=== PATIENT | female | born 1945 | race Caucasian/White ===

== ENCOUNTER 2017-02-01 23:11 | Observation (INO) | payer OTHER, MEDICARE ==
[~2017-02-01] VITALS: Ht 152.4 cm; Wt 56.7 kg
[~2017-02-01 23:11] MED LIST: ALBUTEROL 3 ML3 ML INH; FLUCONAZOLE150 MG PO; GUAIFENESIN600 MG PO; NOVOLOG100 U/ML SC; PREDNISONE10 MG PO; PREDNISONE5 MG PO; Robitussin PO; SPIRIVA1 PUF INH
--- NOTE | 2017-02-01 23:38 | ED GENERAL ADULT ---
See Addendum History of Present Illness General Chief Complaint: General Adult Stated Complaint: " FEVER,@HOME 101.4,CONGESTION,COUGH,SPO2 92%" Source: patient, family Exam Limitations: no limitations Vital Signs & Intake/Output Vital Signs & Intake/Output Vital Signs Date Time Temp Pulse Resp B/P B/P Pulse O2 O2 Flow FiO2 Mean Ox Delivery Rate 02/02 0010 Room Air 02/01 2319 98.6 86 20 132/73 92 Room Air ED Intake and Output 02/02 0000 02/01 1200 Intake Total 0 Output Total Balance 0 Intake, Oral 0 Patient 125 lb Weight Weight Reported by Patient Measurement Method Allergies Coded Allergies: No Known Allergies (12/26/15) Triage Note: PT TO ED C/O COUGH, SNEEZING, CONGESTION AND FEVER AT HOME 101.4. 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 O2 SAT 92% ON RA PMH OF PNA Triage Nurses Notes Reviewed? yes Onset: Gradual Duration: day(s): (6) Timing: remote history Injury Environment: home Severity: moderate Severity Numbers: 7 No Modifying Factors: none Associated Symptoms: cough HPI: Patient is a 71-year-old female with no past medical history, non-any daily medication presenting to the emergency department chief complaint of dry cough, malaise, low oxygen. Symptoms initially started about 6 days ago progressively getting worse today. Denies taking anything [id number] help with symptoms. History of similar symptoms in the past with pneumonia. Denies any sputum production. Fevers up to 101 today at home. The last time she developed pneumonia is very rapid so she wanted to come in for evaluation make sure it doesn't get worse. No nausea or vomiting. Denies abdominal pain. She does report nasal congestion. (ALAN DALLAS,GALEN) Reconcile Medications No Known Home Medications (CAILIN BOBO,JOSE MARIA Bingham) Past History Travel History Traveled to [place] past 21 day No Medical History Any Pertinent Medical History? 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 No (GALEN CASTRO) Review of Systems Review of Systems Constitutional: Reports: fever, malaise. Comments Review of systems: See HPI, All other systems negative. Constitutional, no chills or weight loss HEENT: No visual changes no sore throat Cardiovascular: No chest pain ,palpitation , orthopnea or ankle swelling Skin, no jaundice no rashes Respiratory: No dyspnea cough sputum or hemoptysis GI: No nausea no vomiting : No dysuria No hematuria Muscle skeletal: no back pain, no neck pain, Neurologic: No numbness no confusion, no headaches Psych: No stress anxiety or depression,. Heme/endocrine: No bruising no bleeding no polyuria or polydipsia Immunology: No splenectomy or history of AIDS (GALEN CASTRO) Physical Exam Physical Exam General Appearance: well developed/nourished, no apparent distress, alert, awake , comfortable Comments: Well-developed well-nourished person in no acute distress HEENT: Normal EENT exam, extraocular motion intact, no nystagmus. Pupils equally round and reactive to light and accommodation. Nose is atraumatic. External auditory canal and Tympanic membranes clear. Pharynx normal. No swelling or edema. Neck: Supple, no lymphadenopathy, normal range of motion without pain or tenderness Back: Nontender Cardiovascular: Regular rate and rhythms no murmurs rubs or gallops, normal JVP Respiratory: Chest nontender. No respiratory distress.breath sounds diminished to auscultation bilaterally Extremity: No edema, no calf tenderness to palpation, normal and equal pulses. Neuro: Alert oriented x3 Skin: No appreciable rash on exposed skin, skin is warm and dry. Psych: Mood and affect is normal, memory and judgment is normal. Core Measures ACS in differential dx? No CVA/TIA Diagnosis: No Severe Sepsis Present: No Septic Shock Present: No (GALEN CASTRO) Progress Differential Diagnoses I considered the following diagnoses in my evaluation of the patient: Pneumonia , bronchitis, viral syndrome, influenza, COPD exacerbation Plan of Care: Orders Procedure Date/time Status BLOOD CULTURE 02/01 2325 Active BLOOD CULTURE 02/01 2323 Active TROPONIN LEVEL 02/01 2323 Complete COMPREHENSIVE METABOLIC PANEL 02/01 2323 Complete CBC WITHOUT DIFFERENTIAL 02/01 2323 Complete EKG 02/01 2323 Active Laboratory Tests 02/01/172350: Anion Gap 13, Estimated GFR > 60, BUN/Creatinine Ratio 21.4, Glucose 153 H, Calcium 9.4, Total Bilirubin 0.7, AST 26, ALT 48, Alkaline Phosphatase 78, Troponin I < 0.01, Total Protein 6.8, Albumin 3.9, Globulin 2.9, Albumin/ Globulin Ratio 1.3, CBC w Diff NO MAN DIFF REQ, RBC 4.45, MCV 87.9, MCH 30.1, RDW 13.1, MPV 8.2, Gran % 65.6, Lymphocytes % 25.4, Monocytes % 6.3, Eosinophils % 1.3, Basophils % 1.4, Absolute Granulocytes 8.9 H, Absolute Lymphocytes 3.4, Absolute Monocytes 0.9 H, Absolute Eosinophils 0.2, Absolute Basophils 0.2, PUBS MCHC 34.2 Microbiology 02/01 2358 BLOOD: Blood Culture - RECD 02/01 2351 BLOOD: Blood Culture - RECD Diagnostic Imaging: Viewed by Me: Radiology Read. Discussed w/RAD: Radiology Read. Initial ED EKG: NSR (78) Hand-Off Endorsed To: CAILIN BOBO,JOSE MARIA Bingham Endorsed Time: 99 Pending: Xray (GALEN CASTRO) CXR Impression: no acute abnormality, no infiltrates, normal size heart, normal mediastinum Comments: PATIENT: AUGIE LATIF PRESENT AGE: 71 PATIENT ACCOUNT NO: [id number] : 45 LOCATION: [facility] ORDERING PHYSICIAN: JOSE MARIA SIMEON MD SERVICE DATE: 02/01/17 EXAM TYPE: RAD - XRY-CHEST XRAY, PA AND LATERAL EXAMINATION: XR CHEST CLINICAL INFORMATION: Hypoxia COMPARISON: CT from 04/16/2016 TECHNIQUE: 2 views of the chest were obtained. FINDINGS: The lungs are well expanded. There is no focal consolidation, edema, or effusion. No pneumothorax. The cardiomediastinal silhouette is within normal limits. No acute osseous abnormality. Mild degenerative changes in the spine. IMPRESSION: Clear lungs. DICTATED BY: JANI BOBO,ARPIT DATE/TIME DICTATED:02/02/1757 HOUSE WIRER:FANNY DATE/TIME TRANSCRIBED:02/02/1757 CONFIDENTIAL, DO NOT COPY WITHOUT APPROPRIATE AUTHORIZATION. <Electronically signed in Other Vendor System> SIGNED BY: JANI BOBO,ARPIT 02/02 010 (CAILIN BOBO,JOSE MARIA Bingham) Departure Departure Disposition: STILL A PATIENT Condition: Stable Referrals: WHITNEY LEIVA,AMBREEN Cavazos (PCP/Family) Departure Forms: Customer Survey General Discharge Information (GALEN CASTRO) Departure Clinical Impression Primary Impression: Hypoxia Secondary Impressions: COPD exacerbation Prescriptions: Current Visit Scripts No Known Home Medications Admission Note Spoke With: YVAN ROMANO MD Documentation of Exam: Documentation of any treatments & extenuating circumstances including Concerns Regarding Discharge (functional status, medication knowledge or non-compliance, living conditions, etc.) that warrant an admission rather than observation: pt hypoxic to 86% on room air, wheezing, rhonchi, diminished breath sounds on exam... most consistent with copd... Pt merits steroids, abx, 02 support, nebs rtc. PA/BRAND MARKETING COORDINATOR Co-Sign Statement Statement: ED Attending supervision documentation- [x] I saw and evaluated the patient. I have also reviewed all the pertinent lab results and diagnostic results. I agree with the findings and the plan of care as documented in the PA's/BRAND MARKETING COORDINATOR's documentation. pt hypoxic to 86% on room air... wheezing/rhonchi on exam... pt to be admitted for abx, 02 support. [] I have reviewed the ED Record and agree with the PA's/BRAND MARKETING COORDINATOR's documentation. [] Additions or exceptions (if any) to the PAs/BRAND MARKETING COORDINATOR's note and plan are summarized below: [] (CAILIN BOBO,JOSE MARIA Bingham) Critical Care Note Critical Care Note Critical Care Time: non-applicable (GALEN CASTRO)
[2017-02-02 00:13] LABS: ABSOLUTE BASOPHIL COUNT 0.2 /CUMM (0.0-0.2); ABSOLUTE EOSINOPHIL COUNT 0.2 /CUMM (0.0-0.7); ABSOLUTE GRANULOCYTE CT 8.9 /CUMM (1.4-6.5); ABSOLUTE LYMPH COUNT 3.4 /CUMM (1.2-3.4); ABSOLUTE MONOCYTE COUNT 0.9 /CUMM (0.10-0.60); BASOPHIL % 1.4 % (0.0-2.0); EOSINOPHIL % 1.3 % (0-5); GRANULOCYTE % 65.6 % (42.2-75.2); HEMATOCRIT 39.1 % (37-47); MEAN CORPUSCULAR HGB 30.1 PG (27.0-31.0); MEAN CORPUSCULAR HGB CONC 34.2 G/DL (33.0-37.0); MEAN CORPUSCULAR VOLUME 87.9 FL (81.0-99.0); MEAN PLATELET VOLUME 8.2 FL (7.4-10.4); PLATELET COUNT 261 /CUMM (130-400); RBC DISTRIBUTION WIDTH 13.1 % (11.5-14.5); RED BLOOD CELL CT 4.45 /CUMM (4.20-5.40); WHITE BLOOD CELL COUNT 13.6 /CUMM (4.8-10.8)
--- NOTE | 2017-02-02 01:02 | RADIOLOGY REPORT ---
EXAMINATION: XR CHEST CLINICAL INFORMATION: Hypoxia COMPARISON: CT from 04/16/2016 TECHNIQUE: 2 views of the chest were obtained. FINDINGS: The lungs are well expanded. There is no focal consolidation, edema, or effusion. No pneumothorax. The cardiomediastinal silhouette is within normal limits. No acute osseous abnormality. Mild degenerative changes in the spine. IMPRESSION: Clear lungs.
--- NOTE | 2017-02-02 03:08 | History & Physical ---
DANNY SU MD 02/02/17 0307: General Information and HPI MD Statement: I have seen and personally examined AUGIE BRENNAN and documented this H&P. The patient is a 71 year old F who presented with a patient stated chief complaint of cough, congestion and fever. Source of Information: patient, family, old records Exam Limitations: no limitations History of Present Illness: Ms. Brennan is a 71 year old female with PMH of three prior episodes of pneumonia who presents to the [place] ED with chief complaint of cough, congestion and fever to 101.4. According to the patient and daughter who is present in the room at time of the interview, Ms. Brennan started feeling run down and was experiencing cough and congestion beginning on Friday 01/26 and Saturday 01/27. She subsequently felt better on Saturday and was able to go to work due to less lethargy. However, she again experienced malaise, cough and congestion on Saturday which has progressed slowly throughout the week to include fever up to 101.4 and mild, clear sputum production. Patient endorses feeling similar to when she previously had pneumonia, prompting her to check her oxygen saturation at home which was found to be 88% on room air at rest. Of note, there is history of several sick contacts at work this week. Patient currently denies chills, dizziness, shortness of breath, heart burn, choking on food, aspiration, chest pain, palpitations, abdominal pain, nausea, vomiting, diarrhea or difficulty performing her ADLs. Past surgical history is negative for prior procedures. Social history is significant for prior tobacco use with patient quitting greater than one year ago. She follows with Dr. Ivan MD due to the several episodes of pneumonia she has had in the past, though the patient denies ever being diagnoses with COPD or other lung pathology. 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 Home Who Do You Live With? daughter. Services at Home: None Primary Language: Prydeinig Smoking Status: Former Smoker ETOH Use: denies use Illicit Drug Use: denies illicit drug use Living Will? yes Functional Ability ADLs Independent: dressing, eating, toileting, bathing. Ambulation: independent IADLs Independent: shopping, housework, finances, food prep, telephone, transportation , medication admin. Employment History Employment Employed Review of Systems Review of Systems Constitutional: Reports: fever, malaise. Denies: chills, unexplained weight loss. EENTM: Reports: nasal congestion, throat pain. Denies: blurred vision, visual changes. Cardiovascular: Denies: chest pain, palpitations, peripheral edema. Respiratory: Reports: cough, sputum production. Denies: short of breath, wheezing. GI: Denies: abdominal pain, nausea, vomiting. Genitourinary: Denies: dysuria, hematuria. Musculoskeletal: Denies: back pain, joint pain. Skin: Denies: lesions. Neurological/Psychological: Denies: confusion, headache, numbness, paresthesia. Hematologic/Endocrine: Denies: bruising, bleeding. Immunologic/Allergic: Denies: splenectomy. All Other Systems: Reviewed and Negative Exam & Diagnostic Data Last 24 Hrs of Vital Signs/I&O Vital Signs Date Time Temp Pulse Resp B/P B/P Pulse O2 O2 Flow FiO2 Mean Ox Delivery Rate 02/02 0208 98.7 86 20 144/64 91 Nasal 2.0L Cannula 02/02 0010 Room Air 02/01 2319 98.6 86 20 132/73 92 Room Air Intake & Output 02/02 0800 02/02 0000 02/01 1600 Intake Total 0 Output Total Balance 0 Intake, Oral 0 Patient 125 lb Weight Weight Reported by Patient Measurement Method Physical Exam General Appearance Alert, Oriented X3, Cooperative, No Acute Distress Skin No Rashes, No Significant Lesion Skin Temp/Moisture Exam: Warm/Dry HEENT Atraumatic, PERRLA, EOMI, Mucous Membr. moist/pink, Mild erythema of posterior pharynx Neck Supple, +2 Carotid Pulse wo Bruit Lymphatic Cervical nl Cardiovascular Regular Rate, Normal S1, Normal S2, No Murmurs Lungs Normal Air Movement, Occasional rhonchi at the bilateral bases, otherwise clear lungs. Abdomen Normal Bowel Sounds, Soft, No Tenderness Neurological Normal Speech, Normal Tone Extremities No Clubbing, No Cyanosis, No Edema Vascular Pulses Symmetrical Last 24 Hrs of Labs/Khanh: Laboratory Tests 02/01/172350: Anion Gap 13, Estimated GFR > 60, BUN/Creatinine Ratio 21.4, Glucose 153 H, Calcium 9.4, Total Bilirubin 0.7, AST 26, ALT 48, Alkaline Phosphatase 78, Troponin I < 0.01, Total Protein 6.8, Albumin 3.9, Globulin 2.9, Albumin/ Globulin Ratio 1.3, CBC w Diff NO MAN DIFF REQ, RBC 4.45, MCV 87.9, MCH 30.1, RDW 13.1, MPV 8.2, Gran % 65.6, Lymphocytes % 25.4, Monocytes % 6.3, Eosinophils % 1.3, Basophils % 1.4, Absolute Granulocytes 8.9 H, Absolute Lymphocytes 3.4, Absolute Monocytes 0.9 H, Absolute Eosinophils 0.2, Absolute Basophils 0.2, PUBS MCHC 34.2 Microbiology 02/02 314 LOWER RESP: Respiratory Culture - ORD 02/02 314 LOWER RESP: Gram Stain - ORD 02/03 220 NASOPHARYN: Influenza Virus A & B Rapid Smear - COMP 02/01 2358 BLOOD: Blood Culture - RECD 02/01 2351 BLOOD: Blood Culture - RECD Diagnostic Data EKG Results NSR HR 78 bpm, QTC 438. CXR Results IMPRESSION: Clear lungs. Assessment/Plan Assessment: Ms. Brennan is a 71 year old female with PMH pneumonia followed by Dr. Ivan MD who presents with a six day history of cough productive of minimal clear sputum, congestion, fever to 101.4, malaise and sore throat. There is noted exposure to several sick contacts at work and similarity in nature of her symptoms to previous symptoms with each episode of pneumonia she has experienced. In the ED: Vital signs showed T 98.6, HR 68, RR 20, BP 132/73 and O2 saturation of 92% on room air. However, ED attending physician Dr. Gregg MD noted that patient was hypoxic to 86% on RA at rest while in the ED. Labs were significant for WBC 13.6 without bands, Glu 153 and troponin <0.01. CXR showed clear lungs. Chest CT showed bronchial wall thickening with bronchial filling defects. Consdier aspiration. Also noted were mediastinal lymph notes. EKG showed NSR HR 78, QTC 438. Patient is admitted to the general medicine floor as OBSERVATION and the following is the management: 1. Acute hypoxic respiratory failure * DDx: bronchitis, COPD exacerbation * Supplemental O2 as needed to maintain oxygen saturation >90% * CXR showed no signs of PNA, chest CT also negative for PNA but did show bronchial wall thickening and filling defects, possibly suggestive of aspiration * Patient has been given IV ceftriaxone and azithromycin in the ED, will continue IV azithromycin for antinflammatory properties * Patient received 125 mg IV solumedrol in the ED after which wheezing improved, will continue with short PO prednsione taper, starting at 40 mg daily and tapering by 10 mg daily thereafter * Rapid flu negative, follow up BC x 2 and LRC along with urine for legionella/ strep Ag * Pulm consult in AM and close follow up with Dr. Ivan MD after discharge * TRC nebs, mucinex BID FULL CODE DVTP: SC lovenox Regular diet Mild pain pathway As Ranked By This Provider Problem List: 1. Hyperglycemia 2. Hypoxia 3. Acute respiratory failure with hypoxia Core Measures/Miscellaneous Acute Coronary Syndrome ACS Diagnosis: No Cerebrovascular Accident CVA/TIA Diagnosis: No Congestive Heart Failure CHF Diagnosis: No Venous Thromboembolism VTE Risk Factors: Acute medical illness, Age > 40 No [facility] VTE prophylaxis d/t: No contraindications No VTE Pharm Prophylaxis d/t: No contraindications VTE Diagnosis: No VTE Type: NONE VTE Confirmed by (Test): NONE Severe Sepsis Severe Sepsis Present: No Septic Shock Septic Shock Present: No Miscellaneous Documentation Attending Case D[facility] Primary Care Physician: AMBREEN CARRION Patient sees these Specialists Dr. Ivan MD- Pulmonology Level of Patient Care: General Medicine BARBARA FRAZIER 02/02/17 0327: Resident Review Statement Resident Statement: examined this patient, discussed with business management intern, agreed with business management intern Other Findings: Patient is 71-year-old female, ex-smoker with nonsignificant past medical history except history of pneumonia in the past came to emergency room with chief complaint of hypoxia, cough, fever and sore throat for a few days. Patient admits that she has productive cough with clear phlegm along with fever of MAXIMUM TEMPERATURE 101 at home. She checked her oxygen saturation periodically at home and found that her oxygen saturation dropped to 89%. On arrival to emergency room on ambulation she dropped her oxygen saturation again and was wheezing and rhonchorous. She was given IV Solu-Medrol and feels better. She denied nausea, vomiting, headache, postnasal drip, sinus tenderness or pressure, any urinary or bowel complaints. She endorses that she had sick contact at work where other employees had cold symptoms. Her vital signs on admission was temperature 98.6, pulse 86, respiratory rate 20 , blood pressure 132/73 and she was saturating 92% on room air later on required 2 L of oxygen through nasal cannula. Her labs showed WBC count of 13.6, hemoglobin 13.4, platelet count 261, sodium 138, potassium 4.0, chloride 103 Chest x-ray was negative for any cardiopulmonary pathology EKG showed normal sinus rhythm with no acute ST-T wave changes Physical examination Alert and oriented 3 in no acute distress Head atraumatic, Neck supple Chest mildly reduced air entry with no obvious wheezing Heart S1, S2 normal with no added sounds Abdomen soft Extremities shows no edema or cyanosis Assessment and plan Patient is 71 year old female, former smoker quit almost a year ago with past medical history of pneumonia came with chief complaint of sore throat, fever and hypoxia and found to have elevated white cell count with negative chest x-ray. The patient and observation for 24 hours on general medical floor and will take care for the following problems Problem #1 acute hypoxia could be due to underlying COPD exacerbation versus community-acquired pneumonia versus bronchitis As her chest x-ray was negative we will request CT chest to look for any evidence of pulmonary infiltrate and if CAT scan came back positive for pneumonia we will continue ceftriaxone and azithromycin We will check her CBC and BEP tomorrow We will send a sputum for culture and sensitivity Supplemental oxygen to keep her oxygen saturation more than 90% of We will give her a short tapering course of oral prednisone starting from p.m. TRC and nebulizations Regular diet Pharmacological DVT prophylaxis Patient is full code DEBBIE BOBO, [facility] 02/02/17 0459: Attending MD Review Statement Attending Statement Attending Statement: examined this patient, discuss w/resident/PA/ORTHOTICS TECHNICIAN, agreed w/resident/PA/ORTHOTICS TECHNICIAN, discussed with family Attending Assessment/Plan: 71 yo F long standing tobacco user quit 1 year ago, probable COPD, h/o pneumonia 30 yrs ago, last admitted to [place] (December 2015) for influenza, multilobar pneumonia; was brought in by daughter for c/o cough, fever 101.4, sore throat, congestion and myalgias that started earlier this week. Noted to be hypoxic at 88% on RA at home. Sick contacts+ at work. Received pneumonia vaccine. Patient reports she followed up with Dr. Love last year, but is not clear if she underwent PFT testing. Vitals: afebrile, HR 70-80's, BP 144/64, sats 92% on 2L. Ambulatory sats 90-91% on RA. Chest b/l reduced air entry, scattered rhonchi right base, otherwise unremarkable exam. Labs: WBC 13.6, trop neg. EKG: SR. CXR: clear lungs. Flu swab is negative. 1. Hypoxia, acute on chronic bronchitis with possible COPD exacerbation. No evidence of pneumonia. 23 Obs on gen med, TRC nebs, sputum culture. We obtained CT chest which shows bronchial wall thickening with filling defects but no consolidation. Patient received IV solumedrol and IV ceftriaxone/azithro in ER. Her symptoms are far improved and she is not wheezing. We will do a rapid po prednisone taper and keep her on IV azithromycin for now. Mucinex BID. Pulm consult in AM. DVT ppx Lovenox. Full code.
--- NOTE | 2017-02-02 04:10 | CT SCAN REPORT ---
EXAMINATION: CT CHEST WITHOUT CONTRAST CLINICAL INFORMATION: Hypoxia, cough, sputum production, rhonchi. COMPARISON: Chest radiograph from earlier today. CT from 04/16/2016. TECHNIQUE: Multidetector volumetric CT imaging of the chest was done. Axial MIP volume rendering provided. Sagittal and coronal reformatted images were obtained. DLP: 208 mGy-cm FINDINGS: LUNGS: The central airways are patent. There is bronchial wall thickening with multiple bronchial filling defects mostly affecting the lower lobes and right middle lobe. Minimal groundglass opacities are seen in the left base. No pneumothorax. No dense consolidation. MEDIASTINUM: The heart is normal in size. No pericardial effusion. Scattered coronary artery calcifications. Mild prominent mediastinal lymph nodes. This is similar to previous. For instance, there is a 1.1 x 1 cm pretracheal node on image 22/69 which is unchanged. Calcified mediastinal and hilar lymph nodes noted suggesting prior granulomatous disease. PLEURA: There is no pleural effusion. No pleural mass or thickening. AXILLA: No lymphadenopathy. UPPER ABDOMEN: Small hiatal hernia. The visualized portion of the upper abdomen is otherwise unremarkable. OSSEOUS STRUCTURES: No acute or suspicious osseous abnormality. Degenerative changes at the thoracic spine. IMPRESSION: Bronchial wall thickening with bronchial filling defects. Aspiration is a consideration. This could be associated with a small airways process. No dense consolidation. Stable prominence of mediastinal lymph nodes.
[2017-02-02 04:23] VITALS: BP 122/64
[2017-02-02] MEDS ORDERED: ZITHROMAX250 M2 PO ×2 (08:33→09:29)
[2017-02-02] MEDS ORDERED: PROAIR HFA8.5 GM INH (08:35)
[2017-02-02] MEDS ORDERED: PREDNISONE10 M2 PO (08:35)
--- NOTE | 2017-02-02 08:36 | Patient Discharge Instructions ---
Discharge Instructions General Discharge Information You were seen/treated for: SHORTNESS OF BREATH Special Instructions: PLEASE SET AN APPOINTMENT WITH DR ARRIZAA IN 1 WEEK Acute Coronary Syndrome Inclusion Criteria At DC or during hospital stay patient has or had the following: ACS DIAGNOSIS No Discharge Core Measures Meds if any: Prescribed or Continued at Discharge Meds if any: NOT Prescribed or Continued at Discharge Congestive Heart Failure Inclusion Criteria At DC or during hospital stay patient has or had the following: CHF DIAGNOSIS No Discharge Core Measures Meds if any: Prescribed or Continued at Discharge Meds if any: NOT Prescribed or Continued at Discharge Cerebrovascular accident Inclusion Criteria At DC or during hospital stay patient has or had the following: CVA/TIA Diagnosis No Discharge Core Measures Meds if any: Prescribed or Continued at Discharge Meds if any: NOT Prescribed or Continued at Discharge Venous thromboembolism Inclusion Criteria VTE Diagnosis No VTE Type NONE VTE Confirmed by (Test) NONE Discharge Core Measures - Per Current guidelines, there needs to be overlap - treatment for the first 5 days of Warfarin therapy. - If discharged on Warfarin prior to 5 days of - overlap therapy, the patient will need to be - assessed for post discharge needs including - *Post discharge parental anticoagulation - *Warfarin and/or parental anticoagulation education - *Follow up date to check INR post discharge At least 5 days overlap therapy as Inpatient No Meds if any: Prescribed or Continued at Discharge Note: Overlap Therapy is Warfarin and Anticoagulant Meds if any: NOT Prescribed or Continued at Discharge
[2017-02-02] MEDS ORDERED: SPIRIVA18 MCG INH (12:17)
[2017-02-02] MEDS ORDERED: SYMBICORT 16010.2 GM INH (12:17)
--- NOTE | 2017-02-02 13:57 | PN- Att Addend ---
Attending Addendum Attending Brief Note 71-year-old female chronic smoker, quit about 10 years ago, with past medical history significant for COPD, pneumonia, and recent admission to the [facility] in December 2015 for influenza with multilobar pneumonia, was admitted yesterday for observation for cough, fever, sore throat, congestion and myalgias for the last 1 week. She was treated for bronchitis with possible COPD exacerbation with azithromycin. CT chest was done which showed bronchial wall thickening with filling defects with no consolidation. Patient was seen and examined on the bedside today and was feeling better with no respiratory discomfort or wheezing. Patient had one reading of 88% saturation on ambulation but later saturating to 92% and above on ambulation. instructor pilot link trainer operator was curb sided was okay discharging the patient as she was clinically stable and moving around without oxygen requirement. Since the patient is feeling clinically better, we will discharge her on Z-Brice and a rapid prednisone taper. Patient was instructed to follow up with her link trainer operator on discharge within 1 week. Medication reconciliation was done. Plan discussed with the resident.
== END 2017-02-02 14:38 ==
LOC: ERH 23:11 → ERHI 02-02 02:14 → 2NB 02-02 02:14 → ENRESERV 02-02 02:33 → EDBEDREQTM 02-02 03:18 → EDBEDREQ 02-02 03:18 → 2NB 02-02 03:28 → ENPENDDIS 02-02 12:54 → 2NB 02-02 14:38
PROVIDERS: Pediatrics; ADMIT Student in an Organized Health Care Education/Training Program
DX: J44.1 Chronic obstructive pulmonary disease with (acute) exacerbation (principal); R09.02 Hypoxemia
CPT/HCPCS: 1263; 1328; 1748; 6090; 87040; 87070; 87449; 87450; 87804; 87804-59; 93005; 93010; 96372; 96374; 96375; G0378; J0456; J0696; J1650; J2930; J7512